=== PATIENT | male | born 1980 | race Caucasian/White ===

== ENCOUNTER 2020-04-13 10:44 | Outpatient (REF) | payer BC, SELFPAY ==
[2020-04-14 08:45] LABS: SARS COV2 IgG Negative (Negative)
== END 2020-04-13 10:45 | disposition home or self-care (01) ==
LOC: HO.HMGCLDS 10:44
PROVIDERS: PCP Internal Medicine; Visit Provider Internal Medicine
DX: Z01.84 Encounter for antibody response examination (principal)
CPT/HCPCS: 86769

== ENCOUNTER 2020-12-17 09:01 | Outpatient (REF) | payer BC, SELFPAY ==
--- NOTE | 2020-12-17 15:38 | MHC.AU.ANO ---
Adult Audiological Evaluation Date of Visit: 12/17/20 Reason for Appointment: Audiological evaluation due to concerns for decreased hearing. Mr. Anderson reports difficulties understanding speech when in the presence of background noise. He notes he hears well in quiet situations but feels that he struggles to hear more than others when in noisy situations. Does patient feel they have a hearing loss?: Yes If Yes, Which Ear?: Both Ears When Was Hearing Difficulty First Noticed?: Several years ago Has hearing been tested previously?: Yes Previous Hearing Test Results: Screenings at school and for the DMV, noted to have normal hearing Hearing Handicap Inventory: HHIE SCORE: 20 Based on HHIE score, patient has: Mild to moderate perceived hearing handicap Ear History: Family History of Hearing Loss?: Yes: Grandfather Medical History: Medical History: Left and right rotator cuff repair in 2011, has had a number of concussions. Allergies: Poison Vonnie Otoscopy: Right Ear: Unremarkable Left Ear: Unremarkable Tympanometry: Tympanometry performed due to: To assess integrity of the middle ear system Right Ear: Normal Middle Ear System (Type A) Left Ear: Normal Middle Ear System (Type A) Otoacoustic Emissions Frequency Range Used: 1.6-8 kHz Right Ear Results: Present Emissions Analysis: Present emissions suggest normal cochlear function. Rules out peripheral hearing loss greater than a mild degree Left Ear Results: Present Emissions Analysis: Present emissions suggest normal cochlear function. Rules out peripheral hearing loss greater than a mild degree Hearing Evaluation: Transducer(s) Used: Insert Earphones, Bone Conduction Method: Conventional Audiometry Stimuli Used: Pure Tones Right Ear: Description of Hearing: Normal hearing from 250-8000 Hz. Left Ear: Description of Hearing: Normal hearing from 250-8000 Hz. Speech Recognition Threshold (SRT): Method Used: Monitored Live Voice Stimuli Used: Spondee Words Right Ear: 0 dBHL Left Ear: 0 dBHL Word Discrimination: Method: Recorded Lists Word Lists Used: NU-6 Right Ear: 100% at 40 dbHL Left Ear: 100% at 40 dBHL QuickSIN: 1 dB SNR loss when presented binaurally at 60 dBHL, indicating normal speech in noise understanding abilities. Recommendations: No further audiological action is indicated at this time. Audiological re-evaluation if changes are noted. Hearing protection should be used when around loud noise. Diagnosis: Primary Diagnosis: H93.293 Abnormal Auditory Perception Services Performed: Comprehensive Audiological Evaluation (CPT 93956) Diagnostic Otoacoustic Emissions (CPT 77749, 26+TC) Tympanometry (CPT 96981) Unlisted Otorhinolaryngological Service or Procedure (CPT 88899) Signature: Provider: Marck Armstrong, CCC-A
== END 2020-12-17 09:02 | disposition home or self-care (01) ==
LOC: HO.SH 09:01
PROVIDERS: Visit Provider Internal Medicine
DX: Z00.00 Encounter for general adult medical examination without abnormal findings (principal)
CPT/HCPCS: 92557; 92567; 92588; 92700

== ENCOUNTER 2021-06-03 07:18 | Outpatient (REF) | payer BC, SELFPAY ==
[2021-06-03 11:24] LABS: MANUAL DIFF FLAG NO
[2021-06-03 11:36] LABS: Basophils Absolute Auto 0.1 X10*3/uL (0.0-0.2); Basophils Percent Auto 0.8 % (0-2); Eosinophils Absolute Auto 0.1 X10*3/uL (0.0-0.4); Eosinophils Percent Auto 1.5 % (0-4); Hematocrit 47.4 % (42.0-52.0); Hemoglobin 16.3 g/dl (14.0-18.0); Imm Gran Abs Auto 0.02 X10*3/uL (0.00-0.03); Imm Gran Pct Auto 0.3 % (0.0-0.4); Lymphocytes Absolute Auto 1.9 X10*3/uL (1.2-4.9); Lymphocytes Percent Auto 30.5 % (20-40); Mean Corpuscular HGB Conc 34.4 g/dl (31.0-36.0); Mean Corpuscular Hemoglobin 29.5 pg (27.0-33.0); Mean Corpuscular Volume 85.7 fL (80.0-98.0); Mean Platelet Volume 10.2 fL (9.4-12.4); Monocytes Absolute Auto 0.5 X10*3/uL (0.1-1.2); Monocytes Percent Auto 8.4 % (2-11); Neutrophils Absolute Auto 3.6 x10*3/uL (2.0-8.3); Neutrophils Percent Auto 58.5 % (45-73); Platelet Count 341 X10*3/uL (160-400); Red Blood Count 5.53 X10*6/uL (4.60-5.80); Red Cell Distribution Width 11.5 % (11.0-16.0); White Blood Count 6.1 X10*3/uL (4.8-10.8)
[2021-06-03 11:50] LABS: Alanine Aminotransferase 15 U/L (0-40); Albumin Level 4.8 g/dL (3.5-5.0); Alkaline Phosphatase 64 U/L (39-117); Anion Gap 13 (12-20); Aspartate Amino Transferase 18 U/L (5-37); Bilirubin Total 0.9 mg/dL (0.0-1.0); Blood Urea Nitrogen 18 mg/dL (9-16); Calcium 9.8 mg/dL (8.4-10.2); Carbon Dioxide 25 mmol/L (22-29); Chloride 106 mmol/L (96-108); Cholesterol 242 mg/dL; Estimated Glomerular Filt Rate > 60; Glucose Fasting 82 mg/dL (60-99); HDL Cholesterol 41 mg/dL; LDL Cholesterol Calculated 174 mg/dl; Potassium 4.3 mmol/L (3.3-5.1); Sodium 140 mmol/L (135-145); Total Protein 7.5 g/dL (6.5-8.0); Triglycerides 138 mg/dL
[2021-06-03 12:14] LABS: Thyroid Stimulating Hormone 1.43 uIU/mL (0.32-4.0)
[2021-06-09 15:51] LABS: Testosterone, Free 93.7 pg/mL (35.0-155.0); Testosterone, Total 471 ng/dL (250-1100)
== END 2021-06-03 07:19 | disposition home or self-care (01) ==
LOC: HO.HMGCLDS 07:18
PROVIDERS: PCP Internal Medicine; Visit Provider Internal Medicine
DX: Z00.00 Encounter for general adult medical examination without abnormal findings (principal); R53.83 Other fatigue
CPT/HCPCS: 36415; 80053; 80061; 84402; 84403; 84443; 85025

== ENCOUNTER 2025-04-27 11:33 | Outpatient (AMB) | payer OTHER, SELFPAY ==
--- NOTE | 2025-04-27 11:36 | A.OFFPC_ITS ---
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 Required: No Accompanied by: Self / Same As Patient Allergies No Known Allergies Allergy (Unverified 04/27/25 11:36) Tobacco use date assessed: 04/27/25 Dental Screening Dental Screen Date: 04/27/25 Did you have a dental visit in the last 12 months?: No Did you have a dental problem in the last 6 months where you did not have access to dental care?: No Was dental information given to patient?: Patient has dentist [facility] Medical History (Updated 04/27/25 @ 12:[address]s MD) Annual physical exam Family History (Updated 04/27/25 @ 11:46 by EUGENIO Perez) Father Parkinson disease Mother No problems noted. Social History (Updated 04/27/25 @ 11:46 by EUGENIO Perez) Housing: House Alcohol intake: current Alcohol intake frequency: holidays/special occasions only Patient Tobacco Use Status: Never used Tobacco service: No Current occupational status: employed Cognitive needs: No Hearing needs: No Vision needs: No Questionnaire PHQ-9 Over the last 2 weeks, how often have you been bothered by any of the following problems? 1. Little interest or pleasure in doing things: not at all 2. Feeling down, depressed, or hopeless: not at all 3. Trouble falling or staying asleep, or sleeping too much: not at all 4. Feeling tired or having little energy: not at all 5. Poor appetite or overeating: not at all 6. Feeling bad about yourself - or that you are a failure or have let yourself or your family down: not at all 7. Trouble concentrating on things, such as reading the newspaper or watching television: not at all 8. Moving or speaking so slowly that other people could have noticed. Or the opposite - being so fidgety or restless that you have been moving around a lot more than usual: not at all 9. Thoughts that you would be better off or of hurting yourself in some way: not at all Total score: 0 Source: Developed by Drs. Pablito Walker, Wanda Florez, Temo Shirley and colleagues, with an educational jackie from [employer]. Thrive Questionnaire Date Thrive assessed: 04/27/25 I am a: Patient What is your living situation today?: I have a steady place to live Within the past 12 months, did the food you bought not last and you didn't have the money to get more?: Never true Within the past 12 months, did you worry whether your food would run out before you got money to buy more?: Never true Do you have trouble paying for medicines?: No Do you have trouble getting transportation to medical appointments?: No Do you have trouble paying your heating and electricity bill?: No Do you have trouble taking care of your child, family member or friend?: No Do you have trouble with day-to-day activities such as bathing, preparing meals, shopping, managing finances, etc.?: No Are you currently unemployed and looking for a job?: No Are you interested in more education?: No Please select the resources that you would like help with: None THRIVE Score: 0 AUDIT C Alcohol Use Questionnaire (AUDIT-C) 1. How often do you have a drink containing alcohol?: Monthly or less 2. How many drinks containing alcohol do you have on a typical day when you are drinking?: 1 or 2 3. How often do you have six or more drinks on one occasion?: Never Total Score: 1 SHWETA-7 AMB Questionnaire SHWETA-7 Date SHWETA - 7 assessed: 04/27/25 Feeling nervous, anxious, or on edge: 0 = Not at all Not being able to stop or control worryin = Not at all Worrying too much about different things: 0 = Not at all Trouble relaxin = Not at all Being so restless that it is hard to sit still: 0 = Not at all Becoming easily annoyed or irritable: 0 = Not at all Feeling afraid as if something awful might happen: 0 = Not at all Total SHWETA-7 score (0-4 normal; 5-9 mild; 10-14 moderate; 15-21 severe): 0 Source: Developed by Drs. Pablito LWanda Marshall Kurt Kroenke and colleagues, with an educational jackie from [employer]. Physical exam (Primary Care) Vital Signs: Last Vital Signs Temp 97.6 F 04/27/25 11:40 Pulse 55 04/27/25 11:40 Resp 14 04/27/25 11:40 BP 122/71 04/27/25 11:40 Pulse Ox 98 04/27/25 11:40 Oxygen Delivery Method Room Air 04/27/25 11:40 BMI result Body Mass Index 25.6 Tobacco/Smoking Status: Tobacco use Status Tobacco use date assessed 04/27/25 04/27/25 11:37 Patient Tobacco Use Status Never used Tobacco 04/27/25 11:47 PHQ-9: PHQ-9 Score PHQ-9: Total score 0 04/27/25 11:37 Thrive Assessment: Date of Thrive Assessment Date Thrive assessed 04/27/25 04/27/25 11:37 Office Procedures Flu Questionnaire Does the patient have a severe egg allergy?: No Does the patient have severe life threatening allergies?: No Does the patient have a fever or illness today?: No Has the patient ever had Guillain-[place] Syndrome?: No Has the patient ever had any past reaction to a flu shot?: No Immunizations Fluarix [id number] (PF) 45 mcg (15 mcg x 3)/0.5 mL IM syringe Performing Provider: Rd Scruggs MD [facility] Documented (not given) by: EUGENIO Perez on 04/27/25 11:48 Reason Not Given: Patient Refused Coding Level of Care Code New Pt Prev Care 40-64y(74962) Diagnoses Hyperlipidemia E78.5 Annual physical exam Z00.00 Assessment & Plan Assessment & Plan (1) Hyperlipidemia: Code(s): E78.5 - Hyperlipidemia, unspecified Plan: Blood work has been ordered. (2) Annual physical exam: Code(s): Z00.00 - Encounter for general adult medical examination without abnormal findings Category: Medical Plan: History of Present Illness - The patient is a 45-year-old male presenting for an annual physical exam with several specific concerns. - He recently found and removed a deer tick from his inner thigh, and notes the site is purple. - For the past several months, the patient has been experiencing loose stools, though they are regular. - He attributes this to diet and stress. - The loose stools have caused perianal irritation, which requires diligent hygiene, including using wet wipes. - He denies any blood in the stool. - The patient's last blood work was in 2020. - He has a history of ADHD, for which he receives stimulant medication from a provider in [place], and he also participates in talk therapy. - He has no known family history of prostate disease or colon cancer. 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 - Marital Status: Single. - Sexual History: Not currently sexually active. - Diet: Suspects his diet may be contributing to his loose stools. Review of Systems - Constitutional: Reports feeling like he is getting old. - Skin: Reports a recent deer tick bite on the inner thigh which is now purple. - Eyes: Reports worsening vision over the past year, noting difficulty focusing on close objects and increased difficulty with bright lights while driving at night. - Gastrointestinal: Reports loose stools for several months and associated perianal irritation. - Denies blood in stool. Physical Exam General: Cooperative and healthy appearing Nutritional Appearance: Well nourished Orientation/consciousness: Patient oriented x3 Limitations: No limitations Head: Normal to inspection General: Appearance normal, both eyes and all related structures Neck: Normal visual inspection Chest: Normal palpation of entire chest wall Respiratory: Normal respiratory effort Neurology: Patient oriented x3 Results The last available blood work is from 2020. Plan - Tick Bite: Reassurance was provided that the bite does not currently require treatment. - The patient was instructed to monitor for a large rash and to call if one develops for antibiotic therapy. - Perianal Irritation: A cream will be prescribed to manage the irritation. - Health Maintenance: Fasting lab work will be ordered, including checks for blood sugar, liver function, kidney function, and anemia. - A Cologuard test will be ordered for colon cancer screening. - Immunizations: The patient declined the influenza vaccine. - ADHD: Patient to continue management with his specialist. Discussion Notes I addressed the patient's concern about a recent deer tick bite. Upon examination, I reassured him that the site is healing normally and does not require antibiotic treatment at this time. I advised him to monitor for a large rash anywhere on his body and to call for antibiotics if one appears, as this could indicate Lyme disease. For his complaint of perianal irritation, a rectal exam was performed which showed no external hemorrhoids, and I will prescribe a cream for symptom relief. We discussed options for colon cancer screening, as he is now of eligible age. The choices of a Cologuard test versus a colonoscopy were presented. Given his lack of family history, we will proceed with the Cologuard test, and an order will be placed for the kit to be sent to his home. I ordered routine fasting blood work to be completed. The patient also declined an influenza vaccination during this visit. Patient Instructions - Please go to the lab at [address] [place] [address] for fasting blood work. - A Cologuard test kit will be mailed to your home for colon cancer screening. - Please follow the instructions to collect a stool sample and mail it back. - The area from the tick bite on your thigh will heal on its own and does not need medicine now. - Watch for a large bullseye-shaped rash anywhere on your body and call the office if you see one. - I am prescribing a cream for the irritation around your anus. - Please use it as directed. Orders: Orders Lipid Panel Today E78.5 - Hyperlipidemia, unspecified Liver Panel Today E78.5 - Hyperlipidemia, unspecified UA and rflx microscopic Today E78.5 - Hyperlipidemia, unspecified Influenza [id number] Immunization Today Z23 - Encounter for immunization Basic Metabolic Panel Today E78.5 - Hyperlipidemia, unspecified Complete Blood Count no Diff Today E78.5 - Hyperlipidemia, unspecified Thyroid Stimulating Hormone Today E78.5 - Hyperlipidemia, unspecified Referrals Cologuard Test Z12.11 - Encounter for screening for malignant neoplasm of colon Medications: New hydrocortisone 2.5% 1 appl topical BID PRN 20 grams 0RF skin irritation
[2025-04-27 11:40] VITALS: BP 122/71; PULSE 55; RESP 14; TEMP 36.4; O2SAT 98; BMI 25.6
--- OUTSIDE RECORDS SUMMARY | 2025-04-27 13:57 | XMS_ITS | Encounter Summary ---
Author Organization [facility] Address [address] [place] [id number] Phone Care Team Providers Care Stockbroking Dealer Name Role Phone aPblito Pate DO Primary Care Provider [phone] Reason for Referral * Physical Therapy (Routine) - Closed Specialty Diagnoses / Procedures Referred By Lubna akbar Referred To Contact Physical Therapy Diagnoses Encounter for rehabilitation shoulder pain Procedures physical therapy System, Provider Not In, [facility] [id number] [place] [id number] Phone: tel: Referral ID Status Reason Start Date Expiration Date Visits Re quested Visits Authorized [id number] Closed 08/21/2017 06/17/2018 9 9 Encounter Details Date Type Department Care Team (Latest Contact Info) Description 06/29/2017 Transcribe Orders [facility] [address] [place] [address] Pablito Pate, [address] [place] [id number] Encounter for rehabilitation (Primary Dx) Social History Tobacco Use Types Packs/Day Years Used Date Smoking Tobacco: Never Assessed Sex and Gender Information Value Date Recorded Sex Assigned at Not on file Legal Sex Male 9:25 PM EDT Gender Identity Not on file Sexual Orientation Not on file documented as of this encounter Plan of Treatment Not on file documented as of this encounter Procedures Procedure Name Priority Date/Time Associated Diagnosis Comments AMB REFERRAL TO [facility] PHYSICAL THERAPY Routine 08/21/2017 5:23 PM EST Encounter for rehabilitation documented in this encounter Results * Ambulatory referral to [facility] Physical Therapy (08/21/2017 5:23 PM EST) us Provider Not In System PhD [facility]B [facility] REFERRALS Fin al Result documented in this encounter Visit Diagnoses Diagnosis Encounter for rehabilitation- Primary documented in this encounter Care Teams Stockbroking Dealer Relationship Specialty Start Date End Date Pablito Pate DO [address] [place] [address] PCP - General Internal Medicine 06/27/17 documented as of this encounter Additional Source Comments The information contained in this document represents components of the legal health record. It is not the complete legal health record.[facility]
--- OUTSIDE RECORDS SUMMARY | 2025-04-27 13:57 | XMS_ITS | Clinical Summary ---
Author Organization [facility] Address [address] [place], [place] [id number] Phone Care Team Providers Care Drive In Waiter/Waitress Name Role Phone Pablito Pate Primary Care Provider [phone] Allergies No known active allergies Medications No known medications Active Problems No known active problems Immunizations Immunization Administration Dates Next Due COVID-19 (Pre-04/09) Moderna Vaccine, mRNA, PF 0 10/05/2020,09/06/2020 Social History Tobacco Use Types Packs/Day Years Used Date Smoking Tobacco: Never Smokeless Tobacco: Never Education Answer Date Recorded Are you interested in more education? Not on bhupinder e 10/13/2022 Are you concerned about learning? Not on file 10/13/2022 No 10/13/2022 No 10/13/2022 Digital Access Answer Date Recorded No 11/10/2022 No 11/10/2022 No 11/10/2022 Reliable internet access at home? Not on file 11/10/2022 Device with a working camera? Not on file Sex and Gender Information Value Date Recorded Sex Assigned at Not on file Legal Sex Male 9:25 PM EDT Gender Identity Not on file Sexual Orientation Not on file Last Filed Vital Signs Vital Sign Reading Time Taken Comments Blood Pressure 129/67 05/16/2021 12:12 PM EST Pulse 61 05/16/2021 12:12 PM EST Temperature 36.9 C (98.4 F) 05/16/2021 12:12 PM EST Respiratory Rate 18 05/16/2021 12:1 2 PM EST Oxygen Saturation 98% 05/16/2021 12: 12 PM EST Inhaled Oxygen Concentration - - Weight 88.5 kg (195 lb) 05/16/2021 12:1 2 PM EST patient reports Height - - Body Mass Index - - Plan of Treatment Health Maintenance Due Date Last Done Comments Adult Td,Tdap Booster 1978 LIPID PANEL 1978 DEPRESSION SCREENING 1990 HEPATITIS C SCREENING 1996 HIV ONE-TIME SCREENING (18-6 5 YEARS) 1996 COLOGUARD 2023 COLONOSCOPY 2023 COLORECTAL CANCER SCREENING 2023 FIT TEST 2023 FOBT 2023 SIGMOIDOSCOPY 2023 VIRTUAL COLONOSCOPY 2023 INFLUENZA VACCINE (#1) 2025 COVID-19 VACCINE (3 - 2024-2 6 season) 2025 10/05/2020, 09/06/2020 SMOKING STATUS SCREENING (On ce After 26 Yrs) Completed 05/16/2021 HEPATITIS A VACCINES Aged Out No long er eligible based on patient's age to complete this topic HIB VACCINES Aged Out No longer eligi ble based on patient's age to complete this topic MENINGOCOCCAL VACCINES (ACWY) Aged Out No longer eligible based on patient's age to complete this topic MENINGOCOCCAL VACCINES (B) Aged Out N o longer eligible based on patient's age to complete this topic PNEUMOCOCCAL VACCINES (0-49 years) Aged Out No longer eligible b ased on patient's age to complete this topic Medical Devices Not on file [facility] [place] [address] [place] [id number] [address] [place] [address] [place] [address] [place] [address] [place] [address] [place] [address] H[place] POS [facility] Care Teams Drive In Waiter/Waitress Relationship Specialty Start Date End Date Pablito Pate DO [address] [place] [id number] PCP - General Internal Medicine 06/27/17 Additional Source Comments The information contained in this document represents components of the legal health record. It is not the complete legal health record.[facility]
== END 2025-04-27 12:09 | disposition home or self-care (01) ==
LOC: HO.HMCSH 11:33
PROVIDERS: PCP Internal Medicine; Visit Provider Internal Medicine
DX: Z00.00 Encounter for general adult medical examination without abnormal findings (principal); E78.5 Hyperlipidemia, unspecified